=== PATIENT | male | born 1975 | race Caucasian/White ===

== ENCOUNTER 2017-01-16 18:02 | Inpatient (IN) | payer OTHER ==
[2017-01-16 19:19] LABS: BASO # 0.1 K/uL (0.0-0.2); BASO % 0.6 % (0.0-2.0); EOS # 0.2 K/uL (0.0-0.7); EOS % 1.6 % (0.0-4.0); HEMATOCRIT 47.8 % (35.0-51.0); LYMPH # 2.7 K/uL (1.0-4.3); LYMPH % 27.4 % (20.0-40.0); MEAN CELL VOLUME 85.9 fL (80.0-94.0); MEAN CORPUSCULAR HEMOGLOBIN 29.3 pg (27.0-31.0); MEAN CORPUSCULAR HGB CONC 34.1 g/dL (33.0-37.0); MEAN PLATELET VOLUME 7.1 fL (7.2-11.7); MONO % 10.4 % (0.0-10.0); RED CELL DISTRIBUTION WIDTH 12.8 % (11.5-14.5); WHITE BLOOD COUNT 9.9 K/uL (4.8-10.8)
[2017-01-16 19:25] LABS: CHLORIDE 101 mmol/L (98-107); POTASSIUM 4.4 mmol/L (3.6-5.2); SODIUM 145 mmol/L (132-148)
[2017-01-16 19:27] LABS: GFR AFRICAN-AMERICAN > 60
[2017-01-16 19:28] LABS: ALB/GLOB RATIO 1.2 (1.0-2.1); ALKALINE PHOSPHATASE 70 U/L (38-126); ALT/SGPT 32 U/L (21-72); AST/SGOT 29 U/L (17-59); BILIRUBIN,TOTAL 0.4 mg/dL (0.2-1.3); BLOOD UREA NITROGEN 22 mg/dL (9-20); CALCIUM 9.9 mg/dl (8.6-10.4); CARBON DIOXIDE 27 mmol/L (22-30); GLUCOSE,RANDOM 108 mg/dL (75-110); TOTAL PROTEIN 8.1 g/dL (6.3-8.3)
[2017-01-16 19:29] LABS: ALCOHOL SERUM < 10 mg/dl (0-10); RBC URINE 1 /hpf (0-3); URINE BACTERIA RARE (<OCC); URINE BILIRUBIN NEGATIVE (NEGATIVE); URINE BLOOD NEGATIVE (NEGATIVE); URINE COLOR Yellow (YELLOW); URINE GLUCOSE (UA) NORMAL (Normal); URINE KETONE TRACE mg/dL (NEGATIVE); URINE LEUKOCYTE ESTERASE NEG Leu/uL (Negative); URINE PROTEIN NEGATIVE (NEGATIVE); WBC URINE 1 /hpf (0-5)
--- NOTE | 2017-01-16 20:11 | C.PDOC ---
History Of Present Illness Pt is here requesting detox from Heroin. Time Seen by Provider: 01/16/17 18:32 Chief Complaint (Nursing): Substance Abuse History Per: Patient Onset/Duration Of Symptoms: Days (2) Current Symptoms Are (Timing): Still Present Suicide/Self Injury Attempted (Context): None Modifying Factor(s): Narcotics Severity: Moderate Associated Symptoms: denies: Suicidal Thoughts, Suicidal Plan Additional History Per: Prior Records Past Medical History Reviewed: Historical Data, Nursing Documentation, Vital Signs Vital Signs: Last Vital Signs Temp 97.8 F 01/16/17 18:20 Pulse 86 01/16/17 18:20 Resp 20 01/16/17 18:20 BP 109/75 01/16/17 18:20 Pulse Ox 100 01/16/17 20:11 - Medical History PMH: Bipolar Disorder (?) Surgical History: No Surg Hx Family History: States: Unknown Family Hx - Social History Hx Tobacco Use: Yes Hx Alcohol Use: No Hx Substance Use: Yes (Snorts Heroin) - Immunization History Hx Tetanus Toxoid Vaccination: Yes Hx Influenza Vaccination: No Hx Pneumococcal Vaccination: No Review Of Systems Except As Marked, All Systems Reviewed And Found Negative. Constitutional: Positive for: Malaise. Negative for: Fever, Weakness Cardiovascular: Negative for: Chest Pain Respiratory: Negative for: Shortness of Breath Gastrointestinal: Positive for: Vomiting, Diarrhea. Negative for: Abdominal Pain Musculoskeletal: Negative for: Neck Pain Skin: Positive for: Lesions Neurological: Negative for: Weakness, Numbness, Seizures, Altered Mental Status Physical Exam - Physical Exam Appears: Non-toxic, No Acute Distress Skin: Normal Color, Warm, Dry, No Rash Head: Atraumatic, Normacephalic Eye(s): bilateral: PERRL, EOMI Neck: Normal ROM, Supple Cardiovascular: Rhythm Regular Respiratory: Normal Breath Sounds, No Accessory Muscle Use Gastrointestinal/Abdominal: Soft Extremity: Normal ROM Neurological/Psych: Oriented x3, Normal Speech, Normal Cognition, Normal Motor, Normal Sensation ED Course And Treatment - Laboratory Results Result Diagrams: 01/16/17 19:10 01/16/17 19:10 O2 Sat by Pulse Oximetry: 100 Pulse Ox Interpretation: Normal Progress Note: Patient is medically stable for detox admission. Disposition Counseled Patient/Family Regarding: Studies Performed, Diagnosis - Disposition Disposition: HOSPITALIZED Disposition Time: 20:49 Condition: STABLE - Clinical Impression Clinical Impression: Opioid dependence Decision To Admit - Pt Status Changed To: Hospital Disposition Of: Inpatient - Admit Certification Admit to Inpatient:: After my assessment, the patient will require hospitalization for at least two midnights. This is because of the severity of symptoms shown, intensity of services needed, and/or the medical risk in this patient being treated as an outpatient. - InPatient: Physician Admission Certification: I certify that this patient requires 2 or more midnights of care for the following reason:: Detox. - . Bed Request Type: Detox Admitting Physician: Kristin Lenz Patient Diagnosis: Opioid dependence
--- NOTE | 2017-01-16 21:27 | PCM.BM ---
<GlennVilma - Last Filed: 01/16/17 21:25> Treatment Plan Problems - Problems identified on initial assessmt Potential for Opiate withdrawal Date Initiated: 01/16/17 Time Initiated: 21:26 Assessment reference: NA Status: Active Priority: 1 Treatment assets and liabiliti Patient Assests: cooperative, ADL independent, negotiates basic needs, cognitively intact Patient Liabilities: substance abuse, other (Homeless) - Milieu Protocol Maintain good personal hygiene: daily Encourage regular showers, daily Remind patient to perform daily oral care Conduct patient checks and document Observation sheet: Q15 minutes Maintain personal safety: every shift Educate patient to report safety concerns to staff, every shift Monitor environment for contraband/sharps Medication safety: Monitor for expected outcome, potential side effects: every shift, Assess barriers to learning: every shift, Assess readiness for medication education: every shift <Sima Carballo - Last Filed: 01/17/17 18:05> Family Contact Family involvement: Family/SO is involved Family contact: Patient agrees to contact, Telephone contact initiated by staff - Goals for Treatment Patient goals for treatment: Complete detox and transtion to long-term rehab at [facility]. Discharge/Continuing Care - Education Needs Education Needs: Patient Medication, Patient Diagnosis/Disease Process, Patient Coping Skills, Patient Anger Management skills, Patient Placement options, Patient Community resources - Discharge Discharge Criteria: Free of agitation, Normal sleep pattern, No longer exhibiting s/s of withdrawal, Reduction of target symptoms Discharge to:: Substance Abuse Rehab - Treatment Team Participation Patient/Family/SO Statement: 01/17/17 18:04 "I wanna go to [facility]. I heard that's a good program". Discussed with Family/SO: No Was Patient/Family/SO present at Treatment Team Meeting: Yes <Richard Moncada - Last Filed: 01/17/17 18:31> - Diagnosis (1) Opioid dependence Status: Acute Interventions: 01/17/17 18:31 * Assess 7x/week regarding severity of withdrawal * Educate regarding risks, benefits, side effects and alternatives of medications * Use Motivational Interviewing for abstinence * Use CBT for relapse prevention * Medication management for withdrawal symptoms * Encourage medication assisted treatment *
--- NOTE | 2017-01-17 14:45 | PCM.PSYCH ---
Initial Psychiatric Evaluation - Initial Psychiatric Evaluation Type of Admission: Voluntary Legal Status: Capacity Chief Complaint (in patient's own words): "I need help." History of Present Illness and Precipitating Events: Pt. is a 41 y/o male with history of heroin dependence and presented to detox because he "needs help." He attributes much of his substance use to having unhealthy relationships with the rest of his family members and "not receiving love" from his mother. Pt. reports to snorting 10 bags of heroin daily for 1.5 years. His last use was on Sunday (01/13/17). Pt. also reports using pain killers (unspecified) for 6 months and sporadically snorts cocaine. He smokes 1 pack of cigarettes daily. Pt. denies use of marijuana, alcohol, PCP, and LSD. Pt. denies past psych hospitalizations, detox, and rehabs. He states that he would like to go to rehab now. He denies any history of suicide attempts and trauma. Pt. reports being depressed time to time. Pt. currently reports of withdrawal symptoms including severe anxiety, back and leg pain, piloerection, and vomiting (2x this morning). He denies homicidal and suicidal ideation. He reports that he is willing to stay in detox until he finds rehab that works for him. Past Medical History: Denies Family Medical History: Denies (pt. 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 [employer] shop Current Medications: Active Medications Generic Name Dose Route Start Last Admin Trade Name Freq PRN Reason Stop Dose Admin Clonidine HCl 0.1 mg 01/16/17 20:48 01/16/17 21:18 Catapres PO 0.1 mg Q8H PRN Administration opioid withdrawal Hydroxyzine HCl 50 mg 01/17/17 10:05 Atarax PO Q6H PRN Anxiety Ibuprofen 600 mg 01/16/17 20:48 01/16/17 21:18 Motrin Tab PO 600 mg Q8H PRN Administration body pain Loperamide HCl 2 mg 01/16/17 20:45 Imodium PO Q8 PRN Diarrhea Methadone HCl 5 mg 01/18/17 10:00 Methadone PO 01/20/17 10:01 DAILY CHAPARRO Nicotine 1 patch 01/17/17 10:00 01/17/17 09:16 Nicoderm Cq TD 1 patch DAILY CHAPARRO Administration Ondansetron HCl 4 mg 01/16/17 20:45 Zofran Tab PO Q8 PRN Nausea/Vomiting Trazodone HCl 100 mg 01/17/17 22:00 Desyrel PO HS PRN Insomnia Past Psychiatric History - Past Psychiatric History Previous Treatment History: None Pertinent Medical Hx (Current Medical&Sleep Prob, Allergies): Allergies Allergy/AdvReac Type Severity Reaction Status Date / Time No Known Allergies Allergy Verified 01/16/17 18:19 No Known Home Med 01/16/17 Review of Systems - Neurological Neurological: UNREMARKABLE - Psychiatric Psychiatric: As Per HPI, Anxiety, Depression. absent: Abnormal Sleep Pattern, Auditory Hallucinations, Hallucinations, Homicidal Ideation, Suicidal Ideation, Visual Hallucinations Mental Status Examination - Personal Presentation Personal Presentation: Looks stated age - Affect Affect: Broad - Motor Activity Motor Activity: Calm - Reliability in Providing Information Reliability in Providing Information: Good - Speech Speech: Organized - Mood Mood: Anxious - Formal Thought Process Formal Thought Process: No Impairment - Obsessions/Compulsions Obsessions: None Compulsions: None - Cognitive Functions Orientation: Person, Place, Situation, Time Sensorium: Alert Attention/Concentration: Attentive Abstract Thinking: [place] Estimate of Intelligence: Average Judgement: Intact, as evidence by: Insight regarding need for hospitalization Memory: Recent intact, as evidence by: Ability to recall events of the day, Remote intact, as evidenced by: Abilit to recall sig. life events - Risk Risk: Withdrawal, Diminished functioning - Strength & Assets Inventory Strength & Assets Inventory: Cooperative - Limitations Limitations: Living alone, Other DSM 5 DX - DSM 5 DSM 5 Diagnosis: Opioid use disorder severe Opioid withdrawal Cocaine use d/o - moderate - Recommended/Plan of Treatment Treatment Recommendations and Plan of Treatment: Opioid use disorder CBT for relapse prevention Psychoeducation Supportive therapy, individual therapy Use NE for abstinence Opioid withdrawal Psychoeducation Methadone detox started Clonidine 0.1 mg prn and other as needed meds refer to rehab consider MAT 33 min Projected ELOS: 4-5 days - Smoking Cessation Smoking Cessation Initiated: Yes
[2017-01-18 06:44] VITALS: O2SAT 100
--- NOTE | 2017-01-18 08:36 | PCM.PYCHDC ---
Mental Status Examination - Mental Status Examination Orientation: Person, Place, Situation, Time Memory: Intact Mood: Anxious Affect: Broad Speech: Appropriate Attention: WNL Concentration: WNL Association: WNL Fund of Knowledge: WNL Formal Thought Process: No Impairment Suicidal Ideation: No Current Homicidal Ideation?: No Discharge Summary - Discharge Note Reason for Hospitalization: Long history of heroin dependence with recent withdrawal and desire for detox. Psychiatric History (includes Medical, Family, Personal Hx): Denies past psych hospitalizations, detox, and rehab. Consultations:: List each consultation separately and include: 1. Reason for request. 2. Findings. 3. Follow-up Summary of Hospital Course include:: 1. Description of specific treatment plan utilized for patients during their course of treatmen. 2. Summarize the time- course for resolution of acute symptoms and/or regressed behaviors. 3. Describe issues identified and worked on during hospitalization. 4. Describe medication utilized. 5. Describe medical problems identified and treated. 6. Reassessment of suicide risk Summary of Hospital Course: The pt. was admitted and started on treatment with psychotherapy, support, psychoeducation, and medication. [place] and CBT used. The pt. attended groups and activities, as well as milieu therapy. All the risks and benefits of medications are discussed and the patient understood and agreed. The pt. improved with the treatments provided. He had few wdw sxs After care discussed with the patient. He will attend [facility] - Final Diagnosis (DSM 5) DSM 5: Opioid use disorder-severe Opioid withdrawal Cocaine use d/o-moderate Disposition: REHAB FACILITY/REHAB UNIT Follow-up Treatment Plan: Refused meds Follow after care plan as discussed. Use relapse prevention skills. Return to ER or call 911 if suicidal, homicidal, or symptoms relapse. Stay away from stress, alcohol, and drugs. See primary doctor once a year. - Smoking Cessation Smoking Cessation Medication prescribed: Yes - Antipsychotic Medications Pt discharged on 2 or more routine antipsychotic medications: No
[2017-01-18 08:45] VITALS: BP 125/84; PULSE 74; RESP 18; TEMP 98.2
== END 2017-01-18 09:45 | DRG 745 ==
LOC: C.ER 18:02 → C.7D 20:51
PROVIDERS: ADMIT Psychiatry & Neurology Psychiatry; ATTEND Psychiatry & Neurology Psychiatry
DX: F11.23 Opioid dependence with withdrawal (principal); F17.210 Nicotine dependence, cigarettes, uncomplicated; F15.90 Other stimulant use, unspecified, uncomplicated; F14.90 Cocaine use, unspecified, uncomplicated

== ENCOUNTER 2017-04-01 00:31 | Emergency (ER) | payer MEDICAID ==
--- NOTE | 2017-04-01 02:00 | C.PDOC ---
History Of Present Illness Patient presents to the ER requesting detox from heroin, last use was a few hours ago. Explained to patient that there are no beds available at this this time, patient requests a place to spend the night. Denies chest pain or SOB. Time Seen by Provider: 04/01/17 01:22 Chief Complaint (Nursing): Substance Abuse History Per: Patient History/Exam Limitations: no limitations Onset/Duration Of Symptoms: Days Current Symptoms Are (Timing): Still Present Suicide/Self Injury Attempted (Context): None Modifying Factor(s): Narcotics Severity: None Pain Scale Rating Of: 0 Associated Symptoms: denies: Depression, Suicidal Thoughts, Suicidal Plan Involuntary Hold By: None Recent travel outside of the [place]: No Past Medical History Reviewed: Historical Data, Nursing Documentation, Vital Signs Vital Signs: Last Vital Signs Temp 97.6 F 04/01/17 00:57 Pulse 72 04/01/17 04:11 Resp 16 04/01/17 04:11 BP 102/76 04/01/17 04:11 Pulse Ox 98 04/01/17 06:44 - Medical History PMH: Bipolar Disorder (?) Surgical History: No Surg Hx Family History: States: Unknown Family Hx - Social History Hx Tobacco Use: Yes Hx Alcohol Use: Yes Hx Substance Use: Yes - Immunization History Hx Tetanus Toxoid Vaccination: Yes Hx Influenza Vaccination: No Hx Pneumococcal Vaccination: No Review Of Systems Constitutional: Negative for: Fever, Chills Cardiovascular: Negative for: Chest Pain Respiratory: Negative for: Shortness of Breath Gastrointestinal: Negative for: Nausea, Vomiting, Abdominal Pain Physical Exam - Physical Exam Appears: Non-toxic, No Acute Distress Skin: Warm, Dry Head: Normacephalic Chest: Symmetrical Cardiovascular: Rhythm Regular Respiratory: No Rales, No Rhonchi, No Wheezing Neurological/Psych: Oriented x3 ED Course And Treatment - Laboratory Results Result Diagrams: 04/01/17 03:23 04/01/17 03:23 ECG: Interpreted By Me, Viewed By Me ECG Rhythm: Sinus Rhythm (71), Nonspecific Changes O2 Sat by Pulse Oximetry: 98 (Room air) Pulse Ox Interpretation: Normal - Radiology CXR: Interpreted by Me, Viewed By Me CXR Interpretation: No: Infiltrates, Fracture, Pnemothorax Progress Note: 2:45 AM Pt now states that he has some chest discomfort. Lungs CTA. Cor:RRR. Abd Soft NT, + BS. cardiac work up ordered Reevaluation Time: :29 Reassessment Condition: Improved Disposition Counseled Patient/Family Regarding: Studies Performed, Diagnosis, Need For Followup - Disposition Referrals: [facility] [Outside] Disposition Time: :29 Condition: UNKNOWN Instructions: Narcotic Abuse (ED) Forms: INgrooves (Greek) - Clinical Impression Clinical Impression: Heroin abuse, Heroin withdrawal - Scribe Statement The provider has reviewed the documentation as recorded by the Scribjerrod Baldwin All medical record entries made by the Scribe were at my direction and personally dictated by me. I have reviewed the chart and agree that the record accurately reflects my personal performance of the history, physical exam, medical decision making, and the department course for this patient. I have also personally directed, reviewed, and agree with the discharge instructions and disposition. Physician Patient Turnover Patient Signed Over To: Mina Rosenbaum Handoff Comments: pending reeval and dispostion
[2017-04-01] MEDS ORDERED: Aspirin 325 mg EC Tablets PO STA (02:44)
[2017-04-01] MEDS ORDERED: Aspirin 325 mg EC Tablets PO ONE (03:13)
[2017-04-01 03:29] LABS: BASO # 0.1 K/uL (0.0-0.2); BASO % 0.5 % (0.0-2.0); EOS # 0.1 K/uL (0.0-0.7); EOS % 0.8 % (0.0-4.0); HEMATOCRIT 41.9 % (35.0-51.0); LYMPH # 3.4 K/uL (1.0-4.3); LYMPH % 26.9 % (20.0-40.0); MEAN CELL VOLUME 87.4 fL (80.0-94.0); MEAN CORPUSCULAR HEMOGLOBIN 30.2 pg (27.0-31.0); MEAN CORPUSCULAR HGB CONC 34.5 g/dL (33.0-37.0); MEAN PLATELET VOLUME 7.3 fL (7.2-11.7); MONO # 1.3 K/uL (0.0-0.8); MONO % 9.8 % (0.0-10.0); NRBC % 0.1 % (0.0-2.0); RED CELL DISTRIBUTION WIDTH 13.1 % (11.5-14.5); WHITE BLOOD COUNT 12.7 K/uL (4.8-10.8)
[2017-04-01 03:34] LABS: CHLORIDE 102 mmol/L (98-107); SODIUM 135 mmol/L (132-148)
[2017-04-01 03:35] LABS: POTASSIUM 3.9 mmol/L (3.6-5.2)
[2017-04-01 03:37] LABS: ALB/GLOB RATIO 1.2 (1.0-2.1); ALKALINE PHOSPHATASE 61 U/L (38-126); AST/SGOT 57 U/L (17-59); BILIRUBIN,TOTAL 0.6 mg/dL (0.2-1.3); CARBON DIOXIDE 23 mmol/L (22-30); GFR AFRICAN-AMERICAN > 60; TOTAL PROTEIN 7.8 g/dL (6.3-8.3)
[2017-04-01 03:38] LABS: ALT/SGPT 38 U/L (21-72); BLOOD UREA NITROGEN 21 mg/dL (9-20); CALCIUM 8.6 mg/dl (8.6-10.4); GLUCOSE,RANDOM 81 mg/dL (75-110)
[2017-04-01 04:12] VITALS: RESP 16
[2017-04-01 05:30] VITALS: O2SAT 98
[2017-04-01] MEDS ORDERED: Lactated Ringer's 1,000 ML IV ONE (06:43)
[2017-04-01] MEDS ORDERED: Lactated Ringer's 1,000 ML ONE (06:45)
[2017-04-01 07:28] VITALS: BP 107/76; PULSE 78; TEMP 97.7
--- NOTE | 2017-04-02 21:42 | CARD ---
APPROVED REPORT EKG Measurement Heart [id number] <Conclusion> Normal sinus rhythm Normal ECG
== END 2017-04-01 07:26 | disposition home or self-care (01) ==
LOC: C.ER 00:31
DX: F11.23 Opioid dependence with withdrawal (principal)
CPT/HCPCS: 80053; 84484; 85025; 93005; 96361; 96374; 96375; 99284; J2060; J2405; J7120

== ENCOUNTER 2017-04-02 12:25 | Inpatient (IN) | payer MEDICAID, OTHER ==
[2017-04-02 14:11] LABS: BASO # 0.1 K/uL (0.0-0.2); BASO % 0.7 % (0.0-2.0); EOS % 0.3 % (0.0-4.0); HEMATOCRIT 44.2 % (35.0-51.0); LYMPH # 1.9 K/uL (1.0-4.3); LYMPH % 18.5 % (20.0-40.0); MEAN CELL VOLUME 87.8 fL (80.0-94.0); MEAN CORPUSCULAR HEMOGLOBIN 29.5 pg (27.0-31.0); MEAN CORPUSCULAR HGB CONC 33.6 g/dL (33.0-37.0); MEAN PLATELET VOLUME 7.3 fL (7.2-11.7); MONO # 0.6 K/uL (0.0-0.8); MONO % 6.3 % (0.0-10.0); RED CELL DISTRIBUTION WIDTH 13.1 % (11.5-14.5); WHITE BLOOD COUNT 10.1 K/uL (4.8-10.8)
[2017-04-02 14:20] LABS: CHLORIDE 104 mmol/L (98-107); RBC URINE 2 /hpf (0-3); URINE BILIRUBIN NEGATIVE (NEGATIVE); URINE BLOOD NEGATIVE (NEGATIVE); URINE COLOR Yellow (YELLOW); URINE GLUCOSE (UA) NORMAL (Normal); URINE KETONE 2+ mg/dL (NEGATIVE); URINE LEUKOCYTE ESTERASE NEG Leu/uL (Negative); URINE PROTEIN NEGATIVE (NEGATIVE); WBC URINE 1 /hpf (0-5)
[2017-04-02 14:21] LABS: POTASSIUM 3.6 mmol/L (3.6-5.2); SODIUM 137 mmol/L (132-148)
[2017-04-02 14:23] LABS: ALB/GLOB RATIO 1.1 (1.0-2.1); ALKALINE PHOSPHATASE 68 U/L (38-126); AST/SGOT 55 U/L (17-59); BILIRUBIN,TOTAL 0.5 mg/dL (0.2-1.3); BLOOD UREA NITROGEN 16 mg/dL (9-20); CARBON DIOXIDE 24 mmol/L (22-30); GFR AFRICAN-AMERICAN > 60; TOTAL PROTEIN 8.3 g/dL (6.3-8.3)
[2017-04-02 14:24] LABS: ALCOHOL SERUM < 10 mg/dl (0-10); ALT/SGPT 43 U/L (21-72); CALCIUM 8.7 mg/dl (8.6-10.4); GLUCOSE,RANDOM 86 mg/dL (75-110)
--- NOTE | 2017-04-02 15:01 | C.PDOC ---
History Of Present Illness 42 year old male presents to ED requesting heroin detox. Patient also states he has been feeling depressed, and is thinking about jumping of a bridge. He denies physical complaints. Time Seen by Provider: 04/02/17 13:26 Chief Complaint (Nursing): Medical Clearance History Per: Patient History/Exam Limitations: no limitations Onset/Duration Of Symptoms: Persistent Current Symptoms Are (Timing): Still Present Severity: Mild Additional History Per: Patient Past Medical History Reviewed: Historical Data, Nursing Documentation, Vital Signs Vital Signs: Last Vital Signs Temp 98.4 F 04/03/17 07:45 Pulse 65 04/05/17 06:07 Resp 18 04/05/17 06:07 BP 122/75 04/05/17 06:07 Pulse Ox 100 04/04/17 18:14 - Medical History PMH: Bipolar Disorder (?) Surgical History: No Surg Hx Family History: States: No Known Family Hx - Social History Hx Tobacco Use: Yes Hx Alcohol Use: Yes Hx Substance Use: Yes - Immunization History Hx Tetanus Toxoid Vaccination: Yes Hx Influenza Vaccination: No Hx Pneumococcal Vaccination: No Review Of Systems Except As Marked, All Systems Reviewed And Found Negative. Constitutional: Negative for: Fever Cardiovascular: Negative for: Chest Pain, Palpitations Respiratory: Negative for: Shortness of Breath Gastrointestinal: Negative for: Nausea, Vomiting, Abdominal Pain, Diarrhea Neurological: Negative for: Altered Mental Status, Headache Psych: Positive for: Depression, Suicidal ideation Physical Exam - Physical Exam Appears: Well, Non-toxic, Other (flat affect) Skin: Normal Color, Warm, Dry Head: Atraumatic, Normacephalic Eye(s): bilateral: Normal Inspection Oral Mucosa: Moist Cardiovascular: Rhythm Regular Respiratory: Normal Breath Sounds, No Rales, No Rhonchi, No Wheezing Gastrointestinal/Abdominal: Normal Exam, Bowel Sounds, Soft, No Tenderness Extremity: Normal ROM, No Pedal Edema Neurological/Psych: Oriented x3 Gait: Steady ED Course And Treatment - Laboratory Results Result Diagrams: 04/02/17 14:05 04/02/17 14:05 O2 Sat by Pulse Oximetry: 100 (On RA) Pulse Ox Interpretation: Normal Progress Note: Blood work, UA, UDS ordered and reviewed. 3:01pm- Patient medically cleared. Pending crisis. 4:07pm - Patient will be admitted to 5E under Dr. Kiran for heroin/opioid abuse, depression. Disposition - Disposition Disposition: HOSPITALIZED Disposition Time: 16:07 Condition: STABLE - Clinical Impression Clinical Impression: Opioid dependence, Depression - Scribe Statement The provider has reviewed the documentation as recorded by the Scribe Surya Quintanilla All medical record entries made by the Scribe were at my direction and personally dictated by me. I have reviewed the chart and agree that the record accurately reflects my personal performance of the history, physical exam, medical decision making, and the department course for this patient. I have also personally directed, reviewed, and agree with the discharge instructions and disposition. Decision To Admit - Pt Status Changed To: Hospital Disposition Of: Inpatient - Admit Certification Admit to Inpatient:: After my assessment, the patient will require hospitalization for at least two midnights. This is because of the severity of symptoms shown, intensity of services needed, and/or the medical risk in this patient being treated as an outpatient. - InPatient: Physician Admission Certification: I certify that this patient requires 2 or more midnights of care for the following reason:: see notes - . Bed Request Type: Psychiatry Admitting Physician: Juan Kiran Patient Diagnosis: Opioid dependence, Depression
--- NOTE | 2017-04-02 18:47 | PCM.BM ---
<AntwanСветлана valerioanta - Last Filed: 04/02/17 18:46> Treatment Plan Problems - Problems identified on initial assessmt Depression Time Initiated: 18:46 Assessment reference: NA Status: Active Priority: 1 Suicidal Ideation Date Initiated: 04/02/17 Time Initiated: 18:47 Assessment reference: NA Status: Monitor Priority: 2 Treatment assets and liabiliti Patient Assests: cooperative, ADL independent, negotiates basic needs, cognitively intact Patient Liabilities: live alone, substance abuse - Milieu Protocol Maintain good personal hygiene: every shift Encourage regular showers, every shift Remind patient to perform daily oral care, every shift Assist patient to perform ADL's Maintain personal safety: every shift Educate patient to report safety concerns to staff, every shift Monitor environment for contraband/sharps Medication safety: Monitor for expected outcome, potential side effects: every shift, Assess barriers to learning: every shift, Assess readiness for medication education: every shift <Romana Poon - Last Filed: 04/04/17 11:10> Family Contact Family involvement: Famliy/SO not involved - Goals for Treatment Patient goals for treatment: "I want to go home." Discharge/Continuing Care - Education Needs Education Needs: Patient Medication, Patient Coping Skills, Patient Placement options, Patient Community resources - Discharge Discharge Criteria: Tolerates medication w/o severe side effects, Free of Suicidal thoughts, No longer exhibiting s/s of withdrawal, Reduction of target symptoms Discharge to:: Home - Treatment Team Participation Discussed with Family/SO: No Was Patient/Family/SO present at Treatment Team Meeting: Yes <Juan Kiran - Last Filed: 04/04/17 11:17> - Diagnosis (1) Bipolar mixed affective disorder, moderate Status: Acute Interventions: 04/04/17 11:16 * Assess/adjust medications daily and /or as needed * See patient on an individual basis 7x/week to assess level of manic behaviors and stability * Discuss risks, benefits, side effects and alternatives of medications * (2) Opioid dependence Status: Acute Interventions: 04/04/17 11:16 * Assess 7x/week regarding severity of withdrawal * Educate regarding risks, benefits, side effects and alternatives of medications * Use Motivational Interviewing for abstinence * Use CBT for relapse prevention * Medication management for withdrawal symptoms * Encourage medication assisted treatment * (3) Opioid withdrawal Status: Acute Interventions: 04/04/17 11:17 * Assess 7x/week regarding severity of withdrawal * Educate regarding risks, benefits, side effects and alternatives of medications * Use Motivational Interviewing for abstinence * Use CBT for relapse prevention * Medication management for withdrawal symptoms * Encourage medication assisted treatment *
[2017-04-03 07:45] VITALS: TEMP 98.4
--- NOTE | 2017-04-03 10:21 | PCM.PSYCH ---
Initial Psychiatric Evaluation - Initial Psychiatric Evaluation Type of Admission: Voluntary Legal Status: Capacity Chief Complaint (in patient's own words): I was feeling suicidal.' History of Present Illness and Precipitating Events: Pt is a 42 year old HM who lives alone , and work as a constructor, with a history of mood disorder and heroin dependence came to he ED with suicidal thoughts of wanting to harm himself. Pt denies any past history of inpatient psychiatric hospitalization or any history of f/u with any psychiatrist. Pt states he came to [place] from [facility] in search for detox a week ago but was told there was no beds. Pt states he has "lost everything in the last week" pt states he was kicked out of his home by his " and mother in law" after it was discovered he had relapsed on heroin, after being clean for two months. Pt states he was "hustling " cocaine. Pt states he uses about 30 bags of heroin but last used one bag intranasally yesterday. Pt reports attending detox, one time in the past. Pt denies medical issues but reports experiencing withdrawal symptoms at this time , which include: diarrhea, loss of appetite, nausea and shakes. Pt denies legal issues however attributes his current cuts and scrapes to a run in with police who "thought he was selling drugs". Pt states he also had issues with Child Support Payments but was taken off a month ago. He reports depressed mood, poor sleep, and poor appetite. He also reports at times irritability, and agitation. Pt denies any past history of Suicidal ideation or attempt and denies history of Auditory or visual hallucinations. 's mood is depressed he is tearful and his mood is flat. Past medical history None reported Current Medications: Active Medications Generic Name Dose Route Start Last Admin Trade Name Freq PRN Reason Stop Dose Admin Clonidine HCl 0.1 mg 04/02/17 18:59 Catapres PO Q8 PRN COWS Score More or Equal to 5 Dicyclomine HCl 10 mg 04/02/17 18:59 Bentyl PO Q6 PRN Muscle spasm Hydroxyzine HCl 25 mg 04/02/17 18:59 Atarax PO Q6 PRN Anxiety Ibuprofen 400 mg 04/02/17 18:59 Motrin Tab PO Q6 PRN Pain, moderate (4-7) Loperamide HCl 2 mg 04/02/17 18:59 Imodium PO Q8 PRN Diarrhea Ondansetron HCl 4 mg 04/02/17 19:14 Zofran Tab PO Q8 PRN Nausea/Vomiting Pneumococcal Polyvalent Vaccine 0.5 ml 04/05/17 10:00 Pneumovax 23 Vaccine IM 04/05/17 10:01 .ONCE ONE Past Psychiatric History - Past Psychiatric History Previous Treatment History: None Pertinent Medical Hx (Current Medical&Sleep Prob, Allergies): Allergies Allergy/AdvReac Type Severity Reaction Status Date / Time No Known Allergies Allergy Verified 04/02/17 13:14 No Known Home Med 01/16/17 Review of Systems - Review of Systems All systems: reviewed and no additional remarkable complaints except - Psychiatric Psychiatric: Anxiety, Irritability, Mood Swings, Suicidal Ideation Mental Status Examination - Personal Presentation Personal Presentation: Looks stated age - Affect Affect: Broad - Motor Activity Motor Activity: Psychomotor Agitation - Reliability in Providing Information Reliability in Providing Information: Fair - Speech Speech: Organized - Mood Mood: Depressed, Anxious - Formal Thought Process Formal Thought Process: No Impairment - Obsessions/Compulsions Obsessions: No Compulsions: No - Cognitive Functions Orientation: Person, Place, Situation, Time Sensorium: Alert Attention/Concentration: Attentive Abstract Thinking: Melvin Estimate of Intelligence: Below average Judgement: Imparied, as evidence by: Poor judgement, Imparied, as evidence by: Lack of insight into illness - Risk Risk: Suicidal, Withdrawal, Diminished functioning - Limitations Limitations: Living alone DSM 5 DX - DSM 5 DSM 5 Diagnosis: Bipolar mixed severe without psychotic features Opioid use severe Opioid withdrawal - Recommended/Plan of Treatment Treatment Recommendations and Plan of Treatment: Bipolar mixed severe without psychotic features CBT Psychoeducation Supportive therapy, group therapy, individual therapy Trazodone 50 mg by mouth daily at bedtime Depakote 500 mg PO BID Opioid use disorder severe CBT Psychoeducation Supportive therapy, individual therapy Use [place] for abstinence Opioid withdrawal CBT Psychoeducation Supportive therapy, individual therapy Clonidine when necessary methadone taper - Smoking Cessation Smoking Cessation Initiated: No
[2017-04-03] MEDS: Divalproex 500 mg DR Tab PO SCH (17:17)
[2017-04-04] MEDS: Divalproex 500 mg DR Tab PO SCH ×2 (09:43→17:08)
--- NOTE | 2017-04-04 09:47 | PCM.PYCHPN ---
Psychiatric Progress Note - Psychiatric Progress Note Patient seen today, length of contact: 16 min Patient Chief Complaint: I am feeling better. Problems Identified/Issues Discussed: Patient seen and evaluated, chart reviewed and discussed with the nurse. Patient remained a bit irritable and agitated. He still reports withdrawal symptoms including nausea, headaches, cramps and sweating. He also reports depressed mood but denies any feelings of hopelessness and helplessness. He denies any SI/HI. He is taking medication and denies any side effects. He signed 48 hours yesterday so he can be discharged tomorrow. Supportive therapy and psychoeducation were given. Medication Change: Yes (Methadone taper) Medical Record Reviewed: Yes Mental Status Examination - Cognitive Function Orientation: Person, Place, Situation, Time Memory: Intact Attention: WNL Concentration: Poor Association: WNL Fund of Knowledge: Poor - Mood Mood: Anxious - Affect Affect: Broad - Speech Speech: Pressured - Formal Thought Process Formal Thought Process: No Impairment - Suicidal Ideation Suicidal Ideation: No - Homicidal Ideation Homicidal Ideation: No Goal/Treatment Plan - Goal/Treatment Plan Need for Continued Stay: Severe depression anxiety, Severe functional impairment Progress Toward Problem(s) and Goals/Treatment Plan: Bipolar mixed severe without psychotic features CBT Psychoeducation Supportive therapy, group therapy, individual therapy Trazodone 50 mg by mouth daily at bedtime Depakote 500 mg PO BID Opioid use disorder severe CBT Psychoeducation Supportive therapy, individual therapy Use [place] for abstinence Opioid withdrawal CBT Psychoeducation Supportive therapy, individual therapy Clonidine when necessary methadone taper - Smoking Cessation Smoking Cessation Initiated: No
[2017-04-04 18:14] VITALS: O2SAT 100
[2017-04-05 06:08] VITALS: BP 122/75; PULSE 65; RESP 18
[2017-04-05] MEDS: Divalproex 500 mg DR Tab PO SCH (09:57)
[2017-04-05] MEDS ORDERED: Pneumococcal 23-Valent Vaccine IM ONE (10:00)
[2017-04-05] MEDS ORDERED: Influenza Vaccine 60 mcg/0.5 mL SYR (4YR UP) IM ONE (10:00)
--- NOTE | 2017-04-05 10:02 | PCM.PYCHDC ---
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 Pt denies any past history of inpatient psychiatric hospitalization or any history of f/u with any psychiatrist. Pt states he came to [place] from [facility] in search for detox a week ago but was told there was no beds. Pt states he has "lost everything in the last week" pt states he was kicked out of his home by his " and mother in law" after it was discovered he had relapsed on heroin, after being clean for two months. Pt states he was "hustling " cocaine. Pt states he uses about 30 bags of heroin but last used one bag intranasally yesterday. Pt reports attending detox, one time in the past. Pt denies medical issues but reports experiencing withdrawal symptoms at this time , which include: diarrhea, loss of appetite, nausea and shakes. Pt denies legal issues however attributes his current cuts and scrapes to a run in with police who "thought he was selling drugs". Pt states he also had issues with Child Support Payments but was taken off a month ago. He reports depressed mood, poor sleep, and poor appetite. He also reports at times irritability, and agitation. Consultations:: List each consultation separately and include: 1. Reason for request. 2. Findings. 3. Follow-up Summary of Hospital Course include:: 1. Description of specific treatment plan utilized for patients during their course of treatmen. 2. Summarize the time- course for resolution of acute symptoms and/or regressed behaviors. 3. Describe issues identified and worked on during hospitalization. 4. Describe medication utilized. 5. Describe medical problems identified and treated. 6. Reassessment of suicide risk Summary of Hospital Course: During the course of his stay, patient (pt) started progressively improving and he no longer remained irritable, depressed, and suicidal. His mood and anxiety were improved and he started attending groups and meetings and started socializing. Patient denied any feelings of hopelessness, helplessness, and worthlessness, denied any problem with the sleep or appetite, denied suicidal ideation or homicidal ideation. Pt denied any auditory or visual hallucinations. Some changes were made in his current medications and patient was discharged on following medications. He tolerated these medications very well and denied any side effects. He signed a 48 hours notice and was discharged to an [facility] program. - Diagnosis (1) Bipolar mixed affective disorder, moderate Status: Acute (2) Opioid dependence Status: Acute (3) Opioid withdrawal Status: Acute - Final Diagnosis (DSM 5) Condition upon Discharge: GOOD DSM 5: Bipolar mixed severe without psychotic features Opioid use disorder severe Opioid withdrawal Disposition: HOME/ ROUTINE Follow-up Treatment Plan: Education: Pt was educated and counseled about the risks and benefits of taking and not taking medications. Pt was educated and counseled about the risks of drinking and abusing drugs. Pt was educated and counseled to go to the ER or call 911 if pt develop suicidal ideation or homicidal ideation, worsening of symptoms or severe side effects of the meds. Prescriptions/Medication Reconciliation: Divalproex [Depakote DR] 500 mg PO BID 14 Days tcp traZODone [Desyrel] 100 mg PO HS #14 tab - Smoking Cessation Smoking Cessation Medication prescribed: No - Antipsychotic Medications Pt discharged on 2 or more routine antipsychotic medications: No
== END 2017-04-05 14:00 | disposition home or self-care (01) | DRG 895 ==
LOC: C.ER 12:25 → C.5E 16:05
PROVIDERS: ADMIT Psychiatry & Neurology Psychiatry; ATTEND Psychiatry & Neurology Psychiatry
PROC: HZ2ZZZZ Detoxification Services for Substance Abuse Treatment (ICD-10-PCS; principal; 2017-04-02)
PROC: HZ52ZZZ Individual Psychotherapy for Substance Abuse Treatment, Cognitive-Behavioral (ICD-10-PCS; 2017-04-02)
PROC: HZ42ZZZ Group Counseling for Substance Abuse Treatment, Cognitive-Behavioral (ICD-10-PCS; 2017-04-02)
PROC: HZ59ZZZ Individual Psychotherapy for Substance Abuse Treatment, Supportive (ICD-10-PCS; 2017-04-02)
PROC: HZ56ZZZ Individual Psychotherapy for Substance Abuse Treatment, Psychoeducation (ICD-10-PCS; 2017-04-02)
PROC: HZ46ZZZ Group Counseling for Substance Abuse Treatment, Psychoeducation (ICD-10-PCS; 2017-04-02)
DX: F11.23 Opioid dependence with withdrawal (principal); R45.851 Suicidal ideations; F31.63 Bipolar disorder, current episode mixed, severe, without psychotic features; F17.210 Nicotine dependence, cigarettes, uncomplicated

== ENCOUNTER 2018-02-26 12:02 | Inpatient (IN) | payer MEDICAID, OTHER ==
[2018-02-26 13:48] LABS: BASO # 0.1 K/uL (0.0-0.2); BASO % 0.8 % (0.0-2.0); EOS # 0.3 K/uL (0.0-0.7); EOS % 2.5 % (0.0-4.0); HEMOGLOBIN 13.9 g/dL (12.0-18.0); LYMPH # 1.9 K/uL (1.0-4.3); LYMPH % 15.4 % (20.0-40.0); MEAN CELL VOLUME 87.1 fL (80.0-94.0); MEAN CORPUSCULAR HEMOGLOBIN 29.9 pg (27.0-31.0); MEAN CORPUSCULAR HGB CONC 34.4 g/dL (33.0-37.0); MEAN PLATELET VOLUME 7.6 fL (7.2-11.7); MONO # 0.6 K/uL (0.0-0.8); NEUT # 9.7 K/uL (1.8-7.0); NEUT % 76.3 % (50.0-75.0); NRBC % 0.1 % (0.0-2.0); RBC 4.66 Mil/uL (4.40-5.90); RED CELL DISTRIBUTION WIDTH 12.8 % (11.5-14.5); WHITE BLOOD COUNT 12.7 K/uL (4.8-10.8)
[2018-02-26 14:04] LABS: SQUAMOUS EPITHIAL < 1 /hpf (0-5); URINE BILIRUBIN NEGATIVE (NEGATIVE); URINE BLOOD NEGATIVE (NEGATIVE); URINE CLARITY Clear (Clear); URINE COLOR Yellow (YELLOW); URINE GLUCOSE (UA) 2+ mg/dL (Normal); URINE LEUKOCYTE ESTERASE NEG Leu/uL (Negative); URINE PROTEIN NEGATIVE (NEGATIVE)
[2018-02-26 14:09] LABS: ALB/GLOB RATIO 1.6 (1.0-2.1); ALBUMIN 4.3 g/dL (3.5-5.0); ALT/SGPT 32 U/L (21-72); AST/SGOT 23 U/L (17-59); BLOOD UREA NITROGEN 15 mg/dL (9-20); CALCIUM 9.1 mg/dl (8.6-10.4); GFR NON-AFRICAN AMERICAN > 60
[2018-02-26 14:20] LABS: BARBITURATES, UR NEGATIVE (NEGATIVE); BENZODIAZEPINES, UR NEGATIVE (NEGATIVE); PHENCYCLIDINE, UR NEGATIVE (NEGATIVE)
--- NOTE | 2018-02-26 14:37 | C.PDOC ---
History Of Present Illness 43-year-old male, presents to the emergency department requesting detox from Heroin. Patient last used this morning at 06:00. Patient denies any vomiting, fever, SI/HI. No other complaints at this time. Time Seen by Provider: 02/26/18 12:54 Chief Complaint (Nursing): Substance Abuse History Per: Patient History/Exam Limitations: no limitations Past Medical History Reviewed: Historical Data, Nursing Documentation, Vital Signs Vital Signs: Last Vital Signs Temp 98.7 F 02/26/18 12:35 Pulse 80 02/26/18 12:35 Resp 18 02/26/18 12:35 BP 143/95 H 02/26/18 12:35 Pulse Ox 98 02/26/18 12:35 - Medical History PMH: Bipolar Disorder (?), Depression Denies: Diabetes, Hepatitis, HIV, HTN, Chronic Kidney Disease, Seizures, Sexually Transmitted Disease - [facility] Procedures DETOXIFICATION SERVICES FOR SUBSTANCE ABUSE TREATMENT (04/02/17) GROUP LEAN SPECIALIST FOR SUBSTANCE ABUSE TREATMENT, PSYCHOEDUCATION (04/02/17) GROUP LEAN SPECIALIST FOR SUBSTANCE ABUSE, COGNITIVE BEHAVIORAL (04/02/17) INDIV PSYCHOTHERAPY FOR SUBSTANCE ABUSE TREATMENT, SUPPORT (04/02/17) INDIV PSYCHOTHERAPY FOR SUBSTANCE ABUSE, COGNITIV BEHAVIORAL (04/02/17) INDIV PSYCHOTHERAPY FOR SUBSTANCE ABUSE, PSYCHOEDUCATION (04/02/17) Family History: States: No Known Family Hx - Social History Hx Tobacco Use: Yes Hx Alcohol Use: Yes Hx Substance Use: Yes - Immunization History Hx Tetanus Toxoid Vaccination: Yes Hx Influenza Vaccination: No Hx Pneumococcal Vaccination: No Review Of Systems Constitutional: Negative for: Fever Cardiovascular: Negative for: Chest Pain Respiratory: Negative for: Shortness of Breath Gastrointestinal: Negative for: Vomiting Psych: Negative for: Suicidal ideation Physical Exam - Physical Exam Appears: Non-toxic, No Acute Distress Skin: Warm, Dry, No Rash Head: Atraumatic, Normacephalic Eye(s): bilateral: Normal Inspection, PERRL, EOMI Nose: Normal Oral Mucosa: Moist Lips: Normal Appearing Neck: Normal ROM Cardiovascular: Rhythm Regular, No Murmur Respiratory: Normal Breath Sounds, No Accessory Muscle Use Gastrointestinal/Abdominal: Normal Exam Back: Normal Inspection Extremity: Normal ROM, No Deformity Neurological/Psych: Oriented x3, Normal Speech ED Course And Treatment - Laboratory Results Result Diagrams: 02/26/18 13:39 02/26/18 13:39 O2 Sat by Pulse Oximetry: 98 Pulse Ox Interpretation: Normal (RA) Medical Decision Making Medical Decision Making: The patient is medically cleared for psych admission/eval. Disposition - Disposition Disposition: HOSPITALIZED Disposition Time: 14:36 Condition: GOOD - POA Present On Arrival: None - Clinical Impression Clinical Impression: Opioid dependence, Heroin abuse - Scribe Statement The provider has reviewed the documentation as recorded by the Scribe (Jason Ruff) All medical record entries made by the Scribe were at my direction and personally dictated by me. I have reviewed the chart and agree that the record accurately reflects my personal performance of the history, physical exam, medical decision making, and the department course for this patient. I have also personally directed, reviewed, and agree with the discharge instructions and disposition.
[2018-02-26 15:31] LABS: OPIATES, UR POSITIVE (NEGATIVE)
--- NOTE | 2018-02-26 15:50 | PCM.BM ---
<Nataly Gale - Last Filed: 02/26/18 15:49> Treatment Plan Problems - Problems identified on initial assessmt potiential for opiate withdrawal Date Initiated: 02/26/18 Time Initiated: 15:49 Assessment reference: NA Status: Active Treatment assets and liabiliti Patient Assests: cooperative, ADL independent, physically healthy, negotiates basic needs, cognitively intact Patient Liabilities: substance abuse, legal issue - Milieu Protocol Maintain good personal hygiene: daily Encourage regular showers, daily Remind patient to perform daily oral care, daily Assist patient to perform ADL's Maintain personal safety: every shift Educate patient to report safety concerns to staff, every shift Monitor environment for contraband/sharps Medication safety: Monitor for expected outcome, potential side effects: every shift, Assess barriers to learning: every shift, Assess readiness for medication education: every shift <Richard Moncada - Last Filed: 02/27/18 14:23> - Diagnosis (1) Opioid dependence Status: Acute Interventions: 02/27/18 14:23 * Assess 7x/week regarding severity of withdrawal * Educate regarding risks, benefits, side effects and alternatives of medications * Use Motivational Interviewing for abstinence * Use CBT for relapse prevention * Medication management for withdrawal symptoms * Encourage medication assisted treatment *
--- NOTE | 2018-02-27 14:22 | PCM.PSYCH ---
Initial Psychiatric Evaluation - Initial Psychiatric Evaluation Type of Admission: Voluntary Legal Status: Capacity Chief Complaint (in patient's own words): "I need help" History of Present Illness and Precipitating Events: Patient is a 43-year-old male, with 4 children. He lives with his , mother in law and brother in law in [place]. He works in couple of seasonal jobs. Patient is here for detox from heroin. Patient states that he uses about 2 bundles of heroin via intranasal every day for a long time. His last usage was yesterday. He reports that he uses cocaine via intranasal a couple of times in a week. He denies any other drug or alcohol use. His urine drug screen is positive for heroin and cocaine. Patient reports that he overdosed heroin 1x about 3 years ago, but he denies being hospitalized for it. He smokes 2 ppd. Patient complains about intermittent chills but he states that he feels good as the medication is working. He denies feeling hopeless, or helpless but feels down and anxious. He also denies any suicidal or homicidal ideations. Patient states that he tried detox and rehab 1x before. He reports that he would like to go to [facility] rehab program in [place] after leaving the detox. Psych hx: pt denies, the records show Bipolar disorder and Depression Medical hx: denies Family hx: sister and brother uses heroin and cocaine, mother has depression and Bipolar disorder Current Medications: Active Medications Generic Name Dose Route Start Last Admin Trade Name Freq PRN Reason Stop Dose Admin Al Hydrox/Mg Hydrox/Simethicone 30 ml 02/26/18 18:18 Maalox 30 Ml PO TID PRN Indigestion / Heartburn Clonidine HCl 0.1 mg 02/26/18 18:18 Catapres PO Q8 PRN COWS Score More or Equal to 5 Hydroxyzine HCl 50 mg 02/26/18 18:20 02/26/18 19:46 Atarax PO 50 mg Q6H PRN Administration Anxiety Loperamide HCl 2 mg 02/26/18 18:18 Imodium PO Q8 PRN Diarrhea Methadone HCl 20 mg 02/27/18 10:00 02/27/18 09:04 Methadone PO 03/03/18 09:59 20 mg Q24H CHAPARRO Administration Taper Nicotine 1 patch 02/26/18 16:30 02/27/18 09:04 Nicoderm Cq TD 1 patch DAILY CHAPARRO Administration Ondansetron HCl 4 mg 02/26/18 18:18 Zofran Tab PO Q8 PRN Nausea/Vomiting Trazodone HCl 100 mg 02/26/18 18:20 Desyrel PO HS PRN Insomnia Past Psychiatric History - Past Psychiatric History Previous Treatment History: Intensive Outpatient Pertinent Medical Hx (Current Medical&Sleep Prob, Allergies): Allergies Allergy/AdvReac Type Severity Reaction Status Date / Time shellfish derived Allergy Verified 02/26/18 13:02 No Known Home Med 02/26/18 Review of Systems - Neurological Neurological: UNREMARKABLE - Psychiatric Psychiatric: Abnormal Sleep Pattern, Anhedonia, Anxiety, Behavioral Changes, Change in Appetite, Depression, Difficulty Concentrating, Irritability. absent: Homicidal Ideation, Suicidal Ideation Mental Status Examination - Personal Presentation Personal Presentation: Looks stated age - Affect Affect: Constricted - Motor Activity Motor Activity: Calm - Reliability in Providing Information Reliability in Providing Information: Good - Speech Speech: Organized - Mood Mood: Depressed, Anxious - Formal Thought Process Formal Thought Process: No Impairment - Cognitive Functions Orientation: Person, Place, Situation, Time Sensorium: Alert Attention/Concentration: Attentive Estimate of Intelligence: Average Judgement: Intact, as evidence by: Insight regarding need for hospitalization Memory: Recent intact, as evidence by: Ability to recall events of the day, Remote intact, as evidenced by: Abilit to recall sig. life events (z) - Risk Risk: Withdrawal, Diminished functioning - Strength & Assets Inventory Strength & Assets Inventory: Cooperative - Limitations Limitations: Living alone DSM 5 DX - DSM 5 DSM 5 Diagnosis: Opioid withdrawal Opioid use d/o - severe Depressive d/o - unspecified Cocaine use d/o - severe - Recommended/Plan of Treatment Treatment Recommendations and Plan of Treatment: Methadone detox As needed medications Gabapentin for augmentation if needed All risks, benefits and alternatives of medications, including no medications, discussed and the patient understood and agreed. Attend groups and activities Supportive therapy and psychoeducation AL for abstinence CBT for relapse prevention Encourage MAT Refer to rehab or IOP Attend self-help groups as well AL for smoking cessation and patch if needed 33 min Projected ELOS: 4 days - Smoking Cessation Smoking Cessation Initiated: Yes
[2018-02-27] MEDS: Aluminum Hydroxide/Magnesium Hydroxide Susp (30 mL) PO PRN (21:29)
[2018-02-28] MEDS: Aluminum Hydroxide/Magnesium Hydroxide Susp (30 mL) PO PRN (14:05)
--- NOTE | 2018-02-28 17:59 | PCM.PYCHPN ---
Psychiatric Progress Note - Psychiatric Progress Note Patient seen today, length of contact: 15 minutes Patient Chief Complaint: I'm feeling much better. Can I be discharged tomorrow. Problems Identified/Issues Discussed: Patient seen, chart reviewed, case discussed with the staff. Issues related to illness and treatment were discussed with the patient and staff. Reported compliant with treatment with no adverse affects. Tolerating treatment very well. Patient reported feeling much better with the treatment. Patient was requesting for early discharge on tomorrow. Education provided to the patient, still wants to leave tomorrow. We will adjust the medications and if stable will discharge him tomorrow. Calm and cooperative. Awake, alert and oriented 3. No psychomotor activity, good eye contact, memory intact. Aftercare discussed with the patient. Denied any delusions, auditory or visual hallucinations, suicidal ideations or homicidal ideations at the time of evaluation. Medical Problems: None reported Diagnostic Results: Reviewed DSM 5 Symptoms Update: Improving with treatment. Medication Change: No Medical Record Reviewed: Yes Mental Status Examination - Cognitive Function Orientation: Person, Place, Situation, Time Memory: Intact Attention: WNL Concentration: WNL Association: WN Fund of Knowledge: [facility] Decription of patient's judgement and insights: Fair - Mood Mood: Anxious (Much less than before) - Affect Affect: Other (Appropriate) - Speech Speech: Appropriate - Formal Thought Process Formal Thought Process: No Impairment Psychotic Thoughts and Behaviors: None - Suicidal Ideation Suicidal Ideation: No - Homicidal Ideation Homicidal Ideation: No Goal/Treatment Plan - Goal/Treatment Plan Need for Continued Stay: Remain at risks for inpatient hospitalization, Discharge may exacerbated symptoms, Severe functional impairment Progress Toward Problem(s) and Goals/Treatment Plan: Patient/staff education. Supportive therapy. CBT for relapse prevention. OK for abstinence. Continue treatment as before. Patient wants to either [facility] or [facility], follow-up care after discharge from the hospital. Estimated Date of D/C: 03/02/18 - Smoking Cessation Smoking Cessation Initiated: Yes
[2018-03-01 10:06] VITALS: BP 119/78; PULSE 69; RESP 19; TEMP 97.3; O2SAT 97
--- NOTE | 2018-03-01 18:31 | PCM.PYCHDC ---
Mental Status Examination - Mental Status Examination Orientation: Person, Place, Situation, Time Memory: Intact Mood: Neutral Affect: Other (Appropriate) Speech: Appropriate Attention: WNL Concentration: WNL Association: WNL Fund of Knowledge: WNL Formal Thought Process: No Impairment Description of patient's judgement and insight: Fair Psychotic Thoughts and Behaviors: None Suicidal Ideation: No Current Homicidal Ideation?: No Discharge Summary - Discharge Note Reason for Hospitalization: Opioid use disorder severe. Cocaine use disorder severe. Major depressive disorder unspecified. Laboratory Data: Reviewed Consultations:: List each consultation separately and include: 1. Reason for request. 2. Findings. 3. Follow-up Summary of Hospital Course include:: 1. Description of specific treatment plan utilized for patients during their course of treatmen. 2. Summarize the time- course for resolution of acute symptoms and/or regressed behaviors. 3. Describe issues identified and worked on during hospitalization. 4. Describe medication utilized. 5. Describe medical problems identified and treated. 6. Reassessment of suicide risk Summary of Hospital Course: Patient is a 43-year-old male, with 4 children. He lives with his , mother in law and brother in law in [place]. He works in couple of seasonal jobs. Patient is here for detox from heroin. Patient states that he uses about 2 bundles of heroin via intranasal every day for a long time. His last usage was yesterday. He reports that he uses cocaine via intranasal a couple of times in a week. He denies any other drug or alcohol use. His urine drug screen is positive for heroin and cocaine. Patient reports that he overdosed heroin 1x about 3 years ago, but he denies being hospitalized for it. He smokes 2 ppd. Patient complains about intermittent chills but he states that he feels good as the medication is working. He denies feeling hopeless, or helpless but feels down and anxious. He also denies any suicidal or homicidal ideations. Patient states that he tried detox and rehab 1x before. He reports that he would like to go to [facility] rehab program in [place] after leaving the detox. Psych hx: pt denies, the records show Bipolar disorder and Depression Medical hx: denies Family hx: sister and brother uses heroin and cocaine, mother has depression and Bipolar disorder During his stay in the hospital patient was treated with methadone taper for opiate withdrawal symptoms. Patient was also treated with other when necessary medications. Patient was attending groups and other activities on the unit. With the above treatment patient started feeling better. Today patient was stable and ready for discharge. At At the time of evaluation and discharge, patient was calm and cooperative, ari ke, alert and oriented 3, had no delusions, no auditory or visual hallucinations, no suicidal ideations or homicidal ideations. Patient was discharged in stable condition. - Final Diagnosis (DSM 5) Condition upon Discharge: GOOD Disposition: HOME/ ROUTINE Follow-up Treatment Plan: Patient wants to [facility] for follow-up care after discharge from the hospital. Prescriptions/Medication Reconciliation: traZODone [Desyrel] 100 mg PO HS PRN #30 tab PRN Reason: Insomnia - Smoking Cessation Smoking Cessation Medication prescribed: No - Antipsychotic Medications Pt discharged on 2 or more routine antipsychotic medications: No
== END 2018-03-01 10:00 | disposition home or self-care (01) | DRG 430 ==
LOC: C.ER 12:02 → C.7D 14:37
PROVIDERS: ADMIT Psychiatry & Neurology Psychiatry; ATTEND Psychiatry & Neurology Psychiatry
PROC: GZHZZZZ Group Psychotherapy (ICD-10-PCS; principal; 2018-02-26)
PROC: GZ56ZZZ Individual Psychotherapy, Supportive (ICD-10-PCS; 2018-02-26)
DX: F31.9 Bipolar disorder, unspecified (principal); F11.23 Opioid dependence with withdrawal; F14.10 Cocaine abuse, uncomplicated; F17.210 Nicotine dependence, cigarettes, uncomplicated